=== PATIENT | female | born 1985 | race Caucasian/White ===

== ENCOUNTER 2018-09-07 05:59 | Day surgery (SDC) | payer SELFPAY ==
[2018-08-25 10:54] VITALS: BMI 30.2
[2018-09-07] MEDS ORDERED: HEPARIN NA (PORCINE) 5,000 UNITS/ML 1ML VIAL ONE (06:33)
[2018-09-07] MEDS ORDERED: PROPOFOL 20 ML ONE (07:10)
[2018-09-07] MEDS ORDERED: fentaNYL CITRATE 250 MCG/5 ML VIAL ONE (07:11)
[2018-09-07] MEDS ORDERED: ROCURONIUM BROMIDE 50 MG/5 ML VIAL ONE ×2 (07:11→09:11)
[2018-09-07] MEDS ORDERED: MIDAZOLAM HCL 2 MG/2 ML SINGLE DOSE VIAL ONE (07:14)
[2018-09-07] MEDS ORDERED: BACITRACIN 15 GM TUBE TOPICAL OINTMENT ONE (07:15)
[2018-09-07] MEDS ORDERED: EPINEPHrine/PF 1 MG/1 ML (1:1,000) AMPULE ONE ×2 (07:15→07:38)
[2018-09-07] MEDS ORDERED: BUPIVACAINE HCL/PF 2.5 MG/ML - 30 ML VIAL IJ ONE (07:15)
[2018-09-07] MEDS ORDERED: LIDOCAINE HCL 1% PRESERVATIVE FREE - 30ML VIAL ONE (07:15)
[2018-09-07] MEDS ORDERED: PROMETHAZINE HCL 25 MG/1 ML VIAL IVPUSH PRN (07:39)
[2018-09-07] MEDS ORDERED: ONDANSETRON 4 MG/2 ML VIAL ONE ×2 (07:58)
[2018-09-07] MEDS ORDERED: DEXAMETHASONE SOD PHOSPHATE 4 MG/1 ML VIAL ONE (07:58)
[2018-09-07] MEDS ORDERED: ceFAZolin SODIUM 1 GM VIAL ONE (07:58)
[2018-09-07] MEDS ORDERED: BUPIVACAINE LIPOSOME/PF (EXPAREL) 266 MG/20 ML VIAL ONE (08:16)
[2018-09-07] MEDS ORDERED: DESFLURANE GAS 240 ML BOTTLE IH ONE (08:22)
[2018-09-07] MEDS ORDERED: HYDROCORTISONE SOD SUCCINATE 2 ML ONE (09:12)
[2018-09-07] MEDS ORDERED: HYDROmorphone HCL/PF 1 MG/ML AMP ONE ×3 (09:13→11:29)
[2018-09-07] MEDS ORDERED: BUPIVACAINE HCL/PF 0.25% (2.5MG/ML) 10 ML VIAL IJ ONE (09:55)
[2018-09-07] MEDS ORDERED: BUPIVACAINE LIPOSOME/PF (EXPAREL) 266 MG/20 ML VIAL NR ONE (09:55)
[2018-09-07] MEDS ORDERED: NEOSTIGMINE METHYLSULFATE 0.5 MG/ML - 10 ML MDV ONE (10:54)
[2018-09-07] MEDS ORDERED: GLYCOPYRROLATE 0.2 MG/1 ML VIAL ONE (10:54)
[2018-09-07] MEDS ORDERED: ONDANSETRON 4 MG/2 ML VIAL IVPB PRN (12:43)
[2018-09-07] MEDS ORDERED: oxyCODONE HCL 5 MG TABLET PO PRN (12:43)
[2018-09-07] MEDS ORDERED: LACTATED RINGERS SOLUTION 1,000 ML IV SCH (12:45)
--- NOTE | 2018-09-07 12:49 | OP ---
Operative Note - Note: Operative Date: 09/07/18 Pre-Operative Diagnosis: abdominal deformity Operation: abdominoplasty with liposuction to trunk Post-Operative Diagnosis: Same as Pre-op Surgeon: Sunil Clark Anesthesia: General Operative Report Dictated: Yes
[2018-09-07] MEDS ORDERED: FAMOTIDINE 20 MG/50 ML IVPB 20 MG/50 ML MG IVPB ONE (12:51)
[2018-09-07] MEDS ORDERED: FAMOTIDINE 20 MG PREMIXED IVPB IVPB ONE (12:55)
[2018-09-07] MEDS: oxyCODONE HCL 5 MG TABLET PO PRN (16:29)
[2018-09-07] MEDS ORDERED: PROMETHAZINE HCL 25 MG/1 ML VIAL IVPUSH ONE (16:57)
[2018-09-07] MEDS: CEFAZOLIN 1 GM/D5W 1 GM/50 ML BAG IVPB SCH (17:10)
[2018-09-07] MEDS: morphine CARPU-JECT 2 MG/1 ML DISP.SYRIN IVPUSH PRN (20:06)
--- NOTE | 2018-09-07 21:30 | OP ---
DATE OF OPERATION: 09/07/2018 TITLE OF PROCEDURE: Abdominoplasty with abdominal and bilateral flank liposuction. PREOPERATIVE DIAGNOSIS: Abdominal lipodystrophy. POSTOPERATIVE DIAGNOSIS: Abdominal lipodystrophy. ANESTHESIA: General endotracheal anesthesia. INSURANCE MARKETING REP: JUANITO De La Torre The patient is seen in the holding area. She is marked in the standing position, awake, aware of all incisions and resulting scars. She is counseled on all risks, benefits, and alternatives to the procedure as well as the limitations. The patient then received 5000 units of subcutaneous heparin preoperatively in the holding area. The patient is given BERNA hose and sequential compression stockings preoperatively in the holding area. She is then brought to the operating room and placed in a supine position. Position is carefully checked by Surgical and Anesthesia Teams. She is padded properly in all necessary locations. A pillow is placed below the knees. Once general anesthesia is given, a Verma catheter is placed, which is removed at the end of the procedure. She is prepped and draped in standard surgical fashion. Timeout is called. Patient, procedure, side, and sites are verified. At this point, an incision is made along the infrapannicular crease, the inferior border of the marked incision pattern, and carried down to the level of the abdominal wall fascia. Along the abdominal fascia, dissection is carried cephalad to the umbilicus, where the umbilicus is then circumcised in a fibrofatty stalk connected to the fascia. Dissection is then further continued cephalad to the costal margins bilaterally and the xiphoid process in the midline. It should be noted that a zlumwuao-wqpd-[id number] tunnel is performed and minimal dissection is performed in the lateral areas of the resection pattern because of the plan for liposuction. At this point, hemostasis is meticulously achieved and a midline plication is performed, first with a series of interrupted buried No. 1 Prolene [id number] sutures both above and below the umbilicus. A 2nd layer of running locking No. 1 Prolene suture is then performed above and below the umbilicus. Knots are buried. The endpoint is smooth, even tension along the abdominal wall fascia. The patient is then brought to a seated upright position at 30 degrees, where the abdominoplasty flap is then transposed and the excess skin and fat are measured and resected. Hemostasis once again achieved. The flap is then thinned judiciously and evenly of sub-Francisco fat, after which hemostasis is achieved. The skin is tailor-tacked and the patient is then infiltrated with wetting solution for liposuction. Please note, prior to this, an injection is given of Exparel. The mixture is 20 mL of the Exparel with an additional 30 mL of 0.25% Marcaine plain. This is given into the fascia and subcutaneously along the inferior border of the incision. Wetting solution is only 1 L of Lactated Ringer's with 1 ampule of epinephrine. No lidocaine is used. This is infiltrated into the midepigastrium as well as the bilateral flanks. A full 30 minutes is awaited for hemostatic effect. While this is being done, attention is being directed toward the umbilical translocation. A Star Trek pattern incision is used, where the umbilicus is then translocated through the incision and inset with a series of interrupted 4-0 nylon suture, followed by a series of interrupted buried deep dermal 3-0 Monocryl suture, followed by a running 4-0 nylon suture on the sides. At the completion of this, liposuction is then performed using the SAFE technique with pre and post-tunneling with a 4-mm basket-tip cannula without suction. Suction is then performed with 3 and 4-mm cannulas, first the midepigastrium, including feathering to the flap, yields 350 mL of lipoaspirate and each flank yielded 350 mL of lipoaspirate. Total lipoaspirate for the case is 950 mL. It should be noted that the full volume of the wetting solution infiltrated was 1200 mL. Endpoint is smooth, even contour. The flap appears to have good distal bleeding, even post the liposuction. Then, 5-Eritrean flat LYDIA drains were brought out through the lateral extents of the incisions. The right drain is in the cephalad portion of the incision, the left drain is in the inferior portion of the incision. The drains are secured with a 2-0 silk drain suture. The Francisco fascia is then closed with a series of interrupted buried 2-0 Vicryl suture, followed by a series of interrupted buried deep dermal Monocryl suture, followed by a running 3-0, 90-day V-Loc Monocryl suture within the mid-dermis. Several 5-0 nylon sutures are placed within the skin in order to correct alignment. There were 3 separate liposuction holes, 1 in each upper hip as well as 1 on the left subcostal area to access the planned areas for liposuction. These are also closed with 5-0 nylon, dressed with Steri-Strips. An abdominal binder is applied, drains are placed to bulb suction. Patient awoken from anesthesia without bucking, transferred in a flexed position to her hospital bed, in a binder. Patient tolerated the procedure well. ALEX PETERSON M.D. [id number]
[2018-09-08] MEDS: CEFAZOLIN 1 GM/D5W 1 GM/50 ML BAG IVPB SCH (02:02)
[2018-09-08] MEDS: morphine CARPU-JECT 2 MG/1 ML DISP.SYRIN IVPUSH PRN (02:03)
[2018-09-08] MEDS ORDERED: ACETAMINOPHEN 325 MG TABLET (FP) PO PRN (02:20)
[2018-09-08] MEDS: oxyCODONE HCL 5 MG TABLET PO PRN (05:44)
[2018-09-08 06:26] VITALS: BP 116/61; PULSE 108; TEMP 99.5
--- NOTE | 2018-09-08 07:43 | PN ---
Progress Note (short form) - Note Progress Note: vss af one fever (low grade) IS ambulating receiving sq hep No collections LYDIA thin ok for d/c home
[2018-09-08] MEDS ORDERED: PRENATAL VITAMINS W/ FOLIC ACID TABLET (FP) PO SCH (10:00)
[2018-09-08] MEDS ORDERED: PATIENT'S OWN MEDICATION (NON-FORMULARY) (Lansoprazole [Prevacid] 30 MG) PO SCH (10:00)
[2018-09-08] MEDS ORDERED: HEPARIN NA (PORCINE) 5,000 UNITS/ML 1ML VIAL SQ SCH (10:00)
[2018-09-08] MEDS ORDERED: PATIENT'S OWN MEDICATION (NON-FORMULARY) (Prenatal Vit 93/Iron Fum/Folic [Prenatal Formula PO SCH (10:00)
[2018-09-08] MEDS ORDERED: PANTOPRAZOLE 40 MG TABLET (FP) PO SCH (10:00)
== END 2018-09-08 09:50 | disposition home or self-care (01) ==
LOC: FASU 05:59 → FASUSAT 05:59 → FM/S 16:15 → FASUSAT 09-08 09:50
PROVIDERS: ATTEND Plastic Surgery
PROC: 0J080ZZ Alteration of Abdomen Subcutaneous Tissue and Fascia, Open Approach (ICD-10-PCS; principal; 2018-09-07 08:30)
PROC: 0J083ZZ Alteration of Abdomen Subcutaneous Tissue and Fascia, Percutaneous Approach (ICD-10-PCS; 2018-09-07 08:30)
DX: E88.1 Lipodystrophy, not elsewhere classified (principal)
CPT/HCPCS: 81025; 94760; J1644